=== PATIENT | female | born 1945 | race Caucasian/White ===

== ENCOUNTER 2017-07-19 20:57 | Observation (INO) | payer MEDICARE ==
[~2017-07-19] VITALS: Ht 160 cm; Wt 67.8 kg
[2017-07-19 21:32] LABS: BASOPHILS % (AUTO) 1.1 % (0.0-5.0); EOSINOPHILS % (AUTO) 2.3 % (0.0-8.0); HEMATOCRIT 40.2 % (36-48); LYMPHOCYTES % (AUTO) 47.3 % (21.0-51.0); MEAN CORPUSCULAR HEMOGLOBIN 31.1 pg (27.0-33.0); MEAN CORPUSCULAR HGB CONC 35.2 g/dL (32.0-36.0); MEAN CORPUSCULAR VOLUME 88.1 fL (79-99); MONOCYTES % (AUTO) 8.9 % (3.0-13.0); NEUTROPHILS % (AUTO) 40.4 % (40.0-77.0); PLATELET COUNT (AUTO) 323 K/uL (130-400); RED BLOOD CELL COUNT(AUTO) 4.56 MIL/uL (4.00-5.50); RED CELL DISTRIBUTION WIDTH 12.8 % (11.0-15.5); WHITE BLOOD COUNT (AUTO) 9.1 K/uL (4.8-10.8)
[2017-07-19] MEDS ORDERED: FAMOTIDINE/PF 20 MG/2 ML VIAL IV ONE (21:36)
[2017-07-19] MEDS ORDERED: METOCLOPRAMIDE 10 MG/2 ML VIAL ONE (21:37)
[2017-07-19] MEDS ORDERED: MECLIZINE HCL 25 MG TABLET ONE (21:37)
[2017-07-19] MEDS ORDERED: LACTATED RINGERS 1000ML 1,000 ML IV ONE (21:38)
[2017-07-19 21:42] LABS: CREATININE 1.1 mg/dL (0.5-1.5); POTASSIUM 3.4 mmol/L (3.5-5.1)
[2017-07-19 21:46] LABS: ALBUMIN 4.1 g/dL (3.5-5.0); BILIRUBIN,TOTAL 0.3 mg/dL (0.2-1.0); TOTAL PROTEIN, SERUM 7.4 g/dL (6.0-8.3)
[2017-07-19 22:52] LABS: APPEARANCE,URINE Clear (CLEAR); BILIRUBIN,URINE Negative (NEGATIVE); COLOR,URINE Yellow (YELLOW); GLUCOSE, URINE (UA) Negative (NEGATIVE); KETONES,URINE Negative (NEGATIVE); LEUKOCYTE ESTERASE ,URINE Moderate (NEGATIVE); NITRATE,URINE Negative (NEGATIVE); OCCULT BLOOD,URINE Negative (NEGATIVE); PROTEIN,URINE Negative (NEGATIVE); UROBILINOGEN,URINE 0.2 mg/dL (0.2-1.0)
[2017-07-19 23:00] LABS: BACTERIA,URINE None Seen /HPF (None Seen); MUCUS,URINE Rare LPF (None Seen); RBC,URINE None Seen /HPF (0-1); SQUAMOUS EPITHELIAL CELL,UR Rare /LPF (0-2)
[2017-07-20] VITALS (7 sets, daily range): BP systolic 128–165; BP diastolic 67–83
[2017-07-20] MEDS ORDERED: ASPI-555 PO (00:50)
[2017-07-20] MEDS ORDERED: PANT40TA25 PO (00:50)
[2017-07-20] MEDS ORDERED: GABA-531 PO (00:50)
[2017-07-20] MEDS ORDERED: VERA40TA5 PO (00:50)
[2017-07-20] MEDS ORDERED: VALS160T28 PO (00:50)
[2017-07-20] MEDS ORDERED: GABA-529 PO ×2 (00:50)
[2017-07-20] MEDS ORDERED: MULT-1250 PO (00:50)
[2017-07-20] MEDS ORDERED: FISH1CAP49 PO (00:50)
[2017-07-20] MEDS ORDERED: UBID100C10 PO (00:50)
[2017-07-20] MEDS ORDERED: CHOL100046 PO (00:50)
[2017-07-20] MEDS ORDERED: INDO25CA PO (00:50)
[2017-07-20] MEDS ORDERED: ROSU5TAB PO (00:50)
[2017-07-20] MEDS ORDERED: SODIUM CHLORIDE 0.9% 1000ML 1,000 ML IV SCH (05:30)
[2017-07-20] MEDS ORDERED: HYDRALAZINE HCL 20 MG/ML VIAL IV PRN ×2 (05:30→09:45)
[2017-07-20] MEDS ORDERED: MECLIZINE HCL 25 MG TABLET PO PRN (05:30)
[2017-07-20] MEDS ORDERED: SODIUM CHLORIDE 0.9% 1000ML 1,000 ML IV ONE (05:44)
[2017-07-20] MEDS: FAMOTIDINE 20MG TAB 20 MG TAB PO SCH ×2 (08:52→20:42)
[2017-07-20] MEDS ORDERED: MAG HYDROX/AL HYDROX/SIMETH ES 30 ML SUSP UDCUP PO PRN (09:45)
[2017-07-20] MEDS ORDERED: ONDANSETRON HCL 4 MG/2 ML VIAL IV PRN (09:45)
[2017-07-20] MEDS ORDERED: LIDOCAINE HCL-MPF 1% 2ML VIAL IVP PRN (09:45)
[2017-07-20] MEDS ORDERED: GUAIFENESIN-DM 200/20 MG 10 ML PO PRN (09:45)
[2017-07-20] MEDS ORDERED: ACETAMINOPHEN 325 MG TAB PO PRN ×2 (09:45)
[2017-07-20] MEDS ORDERED: KETOROLAC TROMETHAMINE 15MG/ML IV PRN (09:45)
[2017-07-20] MEDS ORDERED: LACTULOSE 20 GM/30 ML UDCUP PO PRN (09:45)
[2017-07-20] MEDS ORDERED: NITROGLYCERIN 0.4 MG SL TAB SL PRN (09:45)
[2017-07-20] MEDS ORDERED: POTASSIUM CHLORIDE 20MEQ/100ML 100 ML IV PRN (09:45)
[2017-07-20] MEDS ORDERED: POTASSIUM CHLORIDE 10% ELIXIR 20 MEQ/15 ML UDCUP PO PRN (09:45)
[2017-07-20] MEDS: GABAPENTIN 100 MG CAPSULE PO SCH (11:50)
[2017-07-20] MEDS: MECLIZINE HCL 25 MG TABLET PO SCH ×2 (13:58→20:41)
[2017-07-20] MEDS: INDOMETHACIN 25 MG CAP PO SCH ×2 (13:58→20:42)
[2017-07-20] MEDS: VERAPAMIL HCL 80 MG TABLET PO SCH ×2 (13:58→20:42)
[2017-07-20] MEDS: POTASSIUM CHLORIDE 20 MEQ ERTAB PO PRN ×2 (20:42→23:36)
[2017-07-20] MEDS ORDERED: GABAPENTIN 300 MG CAPSULE PO SCH (21:00)
[2017-07-21 04:00] VITALS: BP 131/77
[2017-07-21 05:34] LABS: CREATININE 1.1 mg/dL (0.5-1.5); MAGNESIUM 1.9 mg/dL (1.80-2.40); PHOSPHORUS 3.9 mg/dL (2.5-4.9); POTASSIUM 4.1 mmol/L (3.5-5.1)
[2017-07-21 08:00] VITALS: BP 143/78
[2017-07-21] MEDS ORDERED: LOSARTAN 100 MG TABLET PO SCH (09:00)
[2017-07-21] MEDS ORDERED: FISH OIL 1000 MG/CAP PO SCH (09:00)
[2017-07-21] MEDS ORDERED: **HM** VIT D3 1000 UNITS PO SCH (09:00)
[2017-07-21] MEDS ORDERED: ASPIRIN 81 MG EC TAB PO SCH (09:00)
[2017-07-21] MEDS ORDERED: MULTIVITAMINS/MINERALS/IRO TAB PO SCH (09:00)
[2017-07-21] MEDS ORDERED: ATORVASTATIN CALCIUM 10 MG TABLET PO SCH (09:00)
[2017-07-21] MEDS ORDERED: GABAPENTIN 100 MG CAPSULE PO SCH (09:00)
[2017-07-21] MEDS: VERAPAMIL HCL 80 MG TABLET PO SCH (09:31)
[2017-07-21] MEDS: INDOMETHACIN 25 MG CAP PO SCH (09:32)
[2017-07-21] MEDS: FAMOTIDINE 20MG TAB 20 MG TAB PO SCH (09:32)
[2017-07-21] MEDS: MECLIZINE HCL 25 MG TABLET PO SCH (09:48)
[2017-07-21] MEDS ORDERED: FLU VACC QS2017-18 36MOS UP/PF 60 MCG/0.5 ML ML IM SCH (11:00)
[2017-07-21 11:44] VITALS: BP 133/81
[2017-07-21] MEDS: GABAPENTIN 100 MG CAPSULE PO SCH (13:06)
== END 2017-07-21 13:45 | disposition home or self-care (01) ==
LOC: EDH 20:57 → 4BH 23:00
PROVIDERS: ADMIT Internal Medicine; ATTEND Internal Medicine
DX: R42 Dizziness and giddiness (principal); E87.6 Hypokalemia; I10 Essential (primary) hypertension; G50.0 Trigeminal neuralgia; Z86.73 Personal history of transient ischemic attack (TIA), and cerebral infarction without residual deficits; Z96.639 Presence of unspecified artificial wrist joint; Z96.698 Presence of other orthopedic joint implants; Z88.0 Allergy status to penicillin; Z23 Encounter for immunization
CPT/HCPCS: 36415 ×3; 70450; 70551; 80048; 80053; 81001; 82550; 82948; 83605 ×2; 83690; 83735; 84100; 84484; 85025; 93005; 96360; 96361; 97116; 97161; 99285; G0008; G0378 ×39; G8978; G8979; G8980; G8981; G8982; G8983; J2765; J3490; J7030 ×2; J7120; Q2038; 90471

== ENCOUNTER 2022-06-03 14:19 | Emergency (ER) | payer MEDICARE ==
[~2022-06-03] VITALS: Ht 160 cm; Wt 63.5 kg
[~2022-06-03 14:19] MED LIST: ASPI-556 PO; CHOL100046 PO; FISH1CAP49 PO; GABA-529 PO; GABA-531 PO; INDO-15 PO; MULT-1250 PO; PANT40TA54 PO; ROSU5TAB PO; UBID100C10 PO; VALS160T29 PO; VERA40TA5 PO
[2022-06-03] MEDS ORDERED: HYDROCODONE/ACETAMINOPHEN 5/325 MG TAB PO ONE (16:00)
[2022-06-03] MEDS ORDERED: LIDOCAINE 5% TOPICAL PATCH TP ONE (16:00)
[2022-06-03 16:02] LABS: BASOPHILS % (AUTO) 0.6 % (0.0-5.0); EOSINOPHILS % (AUTO) 2.6 % (0.0-8.0); HEMATOCRIT 40.9 % (36-48); MEAN CORPUSCULAR HEMOGLOBIN 30.4 pg (27.0-33.0); MEAN CORPUSCULAR HGB CONC 33.5 g/dL (32.0-36.0); MEAN CORPUSCULAR VOLUME 90.9 fL (79-99); MONOCYTES % (AUTO) 7.3 % (3.0-13.0); NEUTROPHILS % (AUTO) 63.4 % (40.0-77.0); PLATELET COUNT (AUTO) 327 K/uL (130-400); RED CELL DISTRIBUTION WIDTH 13.2 % (11.0-15.5); WHITE BLOOD COUNT (AUTO) 9.4 K/uL (4.8-10.8)
[2022-06-03 16:13] LABS: CREATININE 0.9 mg/dL (0.5-1.5); POTASSIUM 3.7 mmol/L (3.5-5.1)
[2022-06-03 16:16] LABS: APPEARANCE,URINE CLOUDY (CLEAR); BILIRUBIN,URINE NEGATIVE (NEGATIVE); COLOR,URINE YELLOW (YELLOW); GLUCOSE, URINE (UA) >=1000 mg/dL (NEGATIVE); KETONES,URINE NEGATIVE (NEGATIVE); LEUKOCYTE ESTERASE ,URINE 250 Leu/uL (NEGATIVE); NITRATE,URINE NEGATIVE (NEGATIVE); OCCULT BLOOD,URINE NEGATIVE (NEGATIVE); PROTEIN,URINE NEGATIVE (NEGATIVE); UROBILINOGEN,URINE 0.2 mg/dL (0.2-1.0)
[2022-06-03 16:18] LABS: BACTERIA,URINE RARE /HPF (None Seen); OTHER CASTS, URINE 1 /LPF (None Seen); SQUAMOUS EPITHELIAL CELL,UR MANY /HPF (0-2); YEAST,URINE BUDDING RARE /HPF (None Seen)
[2022-06-03 16:18] LABS: ALBUMIN 3.9 g/dL (3.5-5.0)
[2022-06-03 17:10] VITALS: BP 137/77
[2022-06-03] MEDS ORDERED: TRAM-355 PO (18:01)
== END 2022-06-03 18:48 | disposition home or self-care (01) ==
LOC: EDH 14:19
DX: M54.50 Low back pain, unspecified (principal); N81.4 Uterovaginal prolapse, unspecified; E78.00 Pure hypercholesterolemia, unspecified; I10 Essential (primary) hypertension; Z98.890 Other specified postprocedural states; Z79.899 Other long term (current) drug therapy; Z79.82 Long term (current) use of aspirin; Z88.0 Allergy status to penicillin
CPT/HCPCS: 36415; 74176; 80053; 81001; 85025; 87088

== ENCOUNTER 2023-09-18 07:56 | Emergency (ER) | payer MEDICARE ==
[~2023-09-18] VITALS: Ht 160 cm; Wt 63.5 kg
[~2023-09-18 07:56] MED LIST changes: +TRAM-355 PO
[2023-09-18 08:43] LABS: HEMATOCRIT 44.4 % (36-48); MEAN CORPUSCULAR HGB CONC 33.6 g/dL (32.0-36.0); MEAN CORPUSCULAR VOLUME 92.3 fL (79-99); RED BLOOD CELL COUNT(AUTO) 4.81 MIL/uL (4.00-5.50); WHITE BLOOD COUNT (AUTO) 7.8 K/uL (4.8-10.8)
[2023-09-18 09:03] LABS: POTASSIUM 3.6 mmol/L (3.5-5.1)
[2023-09-18] MEDS ORDERED: VERA80TA10 PO (09:13)
[2023-09-18] MEDS ORDERED: OXCA150T27 PO (09:14)
[2023-09-18 09:17] LABS: BILIRUBIN,TOTAL 0.5 mg/dL (0.2-1.0); TOTAL PROTEIN, SERUM 6.9 g/dL (6.0-8.3)
[2023-09-18] MEDS ORDERED: IOHEXOL-350 75 ML VIAL IV ONE (09:19)
[2023-09-18] MEDS: ASPIRIN 325MG TAB PO ONE (11:53)
[2023-09-18] MEDS: 0.9%NACL 1000ML 1,000 ML IV ONE (12:06)
[2023-09-18 13:40] LABS: ADD UA MICROSCOPIC YES; APPEARANCE,URINE CLEAR (CLEAR); BILIRUBIN,URINE NEGATIVE (NEGATIVE); COLOR,URINE COLORLESS (YELLOW); GLUCOSE, URINE (UA) NEGATIVE (NEGATIVE); KETONES,URINE NEGATIVE (NEGATIVE); LEUKOCYTE ESTERASE ,URINE 75 Leu/uL (NEGATIVE); NITRATE,URINE NEGATIVE (NEGATIVE); OCCULT BLOOD,URINE NEGATIVE (NEGATIVE); PROTEIN,URINE NEGATIVE (NEGATIVE); UROBILINOGEN,URINE 0.2 mg/dL (0.2-1.0)
[2023-09-18 14:16] LABS: RBC,URINE 0-1 /HPF (0-1); SQUAMOUS EPITHELIAL CELL,UR FEW /HPF (0-2)
[2023-09-18 15:50] VITALS: BP 150/86; PULSE 69; RESP 16; O2SAT 98
== END 2023-09-18 18:15 | disposition short-term general hospital (02) ==
LOC: EDH 07:56
DX: R26.81 Unsteadiness on feet (principal); E78.00 Pure hypercholesterolemia, unspecified; I10 Essential (primary) hypertension; Z79.82 Long term (current) use of aspirin; Z79.899 Other long term (current) drug therapy; Z88.0 Allergy status to penicillin
CPT/HCPCS: 99285; 70450; 70551; 71045; 84484; 80053; 85027; 87088; 82948; 81001; 36415; 70496; 70498; 93005; J7030; Q9967

== ENCOUNTER 2025-05-11 11:02 | Day surgery (SDC) | payer MEDICARE ==
[2025-05-11] VITALS (8 sets, daily range): BP systolic 115–148; BP diastolic 50–91; PULSE 55–64; RESP 14–20; TEMP 97.4–97.9
[~2025-05-11 11:02] MED LIST changes: +ACET-2079 PO; +ASPI-1443 PO; -ASPI-556 PO; +BACL10TA PO; -CHOL100046 PO; -FISH1CAP49 PO; -GABA-529 PO; -GABA-531 PO; -INDO-15 PO; +LOSA25TA41 PO; +MULT-1203 PO; -MULT-1250 PO; +OMEP20CA12 PO; +OXCA300T28 PO; -PANT40TA54 PO; -ROSU5TAB PO; +ROSU5TAB51 PO; +SUMA25TA25 PO; -TRAM-355 PO; -UBID100C10 PO; -VALS160T29 PO; -VERA40TA5 PO; +VERA80TA10 PO
[2025-05-11] MEDS ORDERED: SUMA50TA17 PO (11:35)
[2025-05-11] MEDS ORDERED: MULT-470 PO (11:35)
[2025-05-11] MEDS ORDERED: OXCA300T28 PO (11:35)
[2025-05-11] MEDS ORDERED: LOSA50TA64 PO (11:35)
[2025-05-11] MEDS ORDERED: CHOL-34 PO (11:35)
[2025-05-11] MEDS ORDERED: VIT1CAPS47 PO (11:35)
[2025-05-11] MEDS ORDERED: BACL10TA PO (11:35)
[2025-05-11] MEDS ORDERED: ASPI-1443 PO (11:35)
[2025-05-11] MEDS ORDERED: ROSU5TAB51 PO (11:35)
[2025-05-11] MEDS ORDERED: VERA80TA10 PO (11:35)
[2025-05-11] MEDS ORDERED: ACET-66 PO (11:35)
[2025-05-11] MEDS ORDERED: OMEP20CA12 PO (11:35)
[2025-05-11] MEDS ORDERED: LIDOCAINE HCL 1% MDV 50ML VIAL ONE (12:46)
[2025-05-11] MEDS ORDERED: IOHEXOL-350 50ML VIAL IV ONE (12:46)
[2025-05-11] MEDS ORDERED: HEParin-NS 1,000 UNIT/500 ML 0 ML IV ONE (12:47)
[2025-05-11] MEDS ORDERED: MIDAZOLAM HCL 1 MG/ML 2ML VIAL ONE ×2 (13:07→13:14)
--- NOTE | 2025-05-11 14:43 | CCATH ---
STUDY: Fluoroscopy-guided percutaneous T12 vertebral body augmentation. CLINICAL HISTORY: This is a 79-year-old female, who is here for outpatient T12 vertebral body augmentation. The risks and benefits were explained to the patient. The risks include bleeding, infection, and neurological deficit. DESCRIPTION OF PROCEDURE: After the patient was placed in prone position, the patient was titrated with 100 mcg of fentanyl and 4 mg of Versed during the 30 minutes procedure. Under fluoroscopy guidance, on the left pedicle at T12 was localized at level of the 9 o'clock. Vertebroplasty needle was introduced, which was advanced under fluoroscopy guidance into the T12 vertebral body using interpeduncular approach. A balloon was placed in the vertebral body and kyphoplasty or balloon dilatation of the vertebral body was performed. This was followed by placement of a curved infusion using a coaxial technique was introduced and the cement was injected, a total of 3 mL with cement and methyl acrylic mixture was infused. The cement appears to be in satisfactory position occupying mostly anterior and mid-third of the column and it appears to be in satisfactory position. IMPRESSION: T12 vertebral body augmentation was performed as described above. The patient tolerated the procedure well. The patient is to be observed for a few hours and then discharged. TID: [id number] RECEIPT: [id number]
== END 2025-05-11 16:29 | disposition home or self-care (01) ==
LOC: DAH 11:02
PROVIDERS: ATTEND Radiology Diagnostic Radiology
DX: M80.08XA Age-related osteoporosis with current pathological fracture, vertebra(e), initial encounter for fracture (principal); I10 Essential (primary) hypertension; E78.5 Hyperlipidemia, unspecified; Z86.73 Personal history of transient ischemic attack (TIA), and cerebral infarction without residual deficits; Z90.710 Acquired absence of both cervix and uterus; Z82.49 Family history of ischemic heart disease and other diseases of the circulatory system; Z82.5 Family history of asthma and other chronic lower respiratory diseases; Z88.0 Allergy status to penicillin; Z98.890 Other specified postprocedural states
CPT/HCPCS: 22513; 99156; 99157 ×2; A4223 ×3; C1713 ×2; J3010; J2250 ×2; J3490; Q9967; A4215; A4222; A4221; A4663; A4216; A4606; J1644

== ENCOUNTER → 2025-06-09 | Outpatient (CLI) | payer MEDICARE ==
[~2025-06-09] MED LIST changes: -ACET-2079 PO; +ACET-66 PO; +CHOL-34 PO; -LOSA25TA41 PO; +LOSA50TA64 PO; -MULT-1203 PO; +MULT-470 PO; -SUMA25TA25 PO; +SUMA50TA17 PO; +VIT1CAPS47 PO
--- NOTE | 2025-06-10 22:04 | HMCIMG ---
STUDY MR Lumbar Spine without intravenous contrast HISTORY Lumbar spinal stenosis with neurogenic claudication TECHNIQUE Multiplanar, multisequence MR imaging of the lumbar spine performed without intravenous contrast. COMPARISON None provided. 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 Marked anterior wedging of T12 is present with approximately 70 to 80 percent loss of vertebral body height with associated marrow edema, indicating that the deformity is not entirely chronic. There is additional anterior wedging of L1 with associated marrow edema, also suggesting a subacute or partially healing compression component. Adjacent disc degeneration and opposing endplate marrow edema involve T11. No destructive focal osseous lesion is identified. Alignment Overall lumbar alignment is preserved without significant spondylolisthesis. Spinal cord and cauda equina The conus medullaris and cauda equina demonstrate normal signal and morphology. At T11-T12, a disc osteophyte complex results in indentation of the thecal sac with mild central canal narrowing, compatible with Schizas grade A to B stenosis at this level. Discs and degenerative change Multilevel degenerative disc disease is present. At L1-L2, L2-L3, and L3-L4 there is diffuse posterior disc bulging and paracentral disc disease contacting and mildly indenting the thecal sac on a background of mild facet arthrosis bilaterally from L1-L2 through L3-L4. Disc desiccation is present and graded as Pfirrmann grade III at L1-L2 and L2-L3, and Pfirrmann grade III to IV at L3-L4. At L4-L5, the ankylosed segment demonstrates advanced degenerative disc change with loss of normal disc signal, functionally compatible with Pfirrmann grade V, without high-grade central canal compromise. At L5-S1, there is mild disc desiccation, Pfirrmann grade II to III, without significant bulge or herniation. Findings by level L1-L2 Diffuse disc bulge with mild paracentral prominence and mild facet arthrosis, resulting in mild thecal sac indentation and Schizas grade A central canal narrowing. Neural foramina are patent or show only minimal narrowing, Quique mild at most. L2-L3 Diffuse disc bulge with paracentral components and mild bilateral facet arthrosis, causing mild central canal narrowing, Schizas grade A to early B. Neural foraminal narrowing is mild bilaterally, Quique mild. L3-L4 Diffuse disc bulge with posterior paracentral disc disease and mild bilateral facet arthrosis, producing mild to moderate canal narrowing, Schizas grade B, without julian cauda equina compression. Mild to moderate bilateral foraminal narrowing is present, graded as Quique mild to moderate on both sides. L4-L5 Ankylosed motion segment with advanced disc degeneration, Pfirrmann grade V. No significant residual central canal stenosis, Schizas grade A. Mild foraminal narrowing without definite exiting nerve root compression, Quique mild bilaterally. L5-S1 Disc desiccation, Pfirrmann grade II to III, without significant posterior disc protrusion. Central canal is widely patent, Schizas grade A, and neural foramina are widely patent, Quique none to mild. Paraspinal soft tissues Paraspinal soft tissues are unremarkable. IMPRESSION * Marked anterior wedge compression deformity of T12 with approximately 70 to 80 percent height loss and associated marrow edema, together with anterior wedging and marrow edema at L1, indicating subacute or partially healing compression deformities rather than purely chronic changes; associated T11-T12 disc degeneration and opposing endplate marrow edema, with T11-T12 disc osteophyte complex causing Schizas grade A to B central canal stenosis without julian cord compression. * Multilevel lumbar degenerative disc disease with Pfirrmann grade III degeneration at L1-L2 and L2-L3, Pfirrmann grade III to IV at L3-L4, and Pfirrmann grade V at the ankylosed L4-L5 level, associated with mild to moderate facet arthrosis from L1-L2 through L3-L4, resulting in Schizas grade A to B canal stenosis and Quique mild to moderate foraminal narrowing, most pronounced at L3-L4. * Ankylosed L4-L5 motion segment with advanced disc degeneration but only mild canal and foraminal narrowing and relatively preserved canal and foraminal dimensions at L5-S1, overall compatible with multilevel but predominantly mild to moderate lumbar degenerative stenosis in the setting of neurogenic claudication. /[place]
== END | disposition home or self-care (01) ==
LOC: RAH 14:55
PROVIDERS: ATTEND Neurological Surgery
DX: M48.56XD Collapsed vertebra, not elsewhere classified, lumbar region, subsequent encounter for fracture with routine healing (principal); M48.54XD Collapsed vertebra, not elsewhere classified, thoracic region, subsequent encounter for fracture with routine healing; M47.26 Other spondylosis with radiculopathy, lumbar region; M48.062 Spinal stenosis, lumbar region with neurogenic claudication; M51.16 Intervertebral disc disorders with radiculopathy, lumbar region; M25.78 Osteophyte, vertebrae; M51.369 Other intervertebral disc degeneration, lumbar region without mention of lumbar back pain or lower extremity pain; M51.379 Other intervertebral disc degeneration, lumbosacral region without mention of lumbar back pain or lower extremity pain; M48.07 Spinal stenosis, lumbosacral region; M48.04 Spinal stenosis, thoracic region; M43.26 Fusion of spine, lumbar region; G95.19 Other vascular myelopathies
CPT/HCPCS: 72148